=== PATIENT | female | born 1980 | race Caucasian/White ===

== ENCOUNTER 2021-03-19 02:59 | Emergency (ER) | payer SELFPAY ==
[2021-03-19 03:12] VITALS: BP 150/107
[2021-03-19] MEDS ORDERED: HYDROmorphone 0.5 MG/0.5 ML Syringe IVPUSH ONE ×2 (03:31→06:03)
[2021-03-19] MEDS ORDERED: Ondansetron 4 MG/2 ML SDV IVPUSH ONE (03:31)
[2021-03-19] MEDS ORDERED: Sodium Chloride 0.9% 10 ML Syringe FLUSH PRN (03:31)
[2021-03-19] MEDS ORDERED: Sodium Chloride 0.9% 1,000 ML IV SCH (03:45)
[2021-03-19] MEDS ORDERED: Ketorolac 30 MG/ML SDV IVPUSH SCH (03:45)
[2021-03-19 07:07] VITALS: PULSE 80
== END 2021-03-19 07:05 | disposition home or self-care (01) ==
LOC: JD.ED 02:59
DX: K85.90 Acute pancreatitis without necrosis or infection, unspecified (principal); Z79.899 Other long term (current) drug therapy; Z72.0 Tobacco use
CPT/HCPCS: 36415; 74177; 80053; 83690; 85025; 86140; 96374; 96375; 96376; 99284; J1170; J1885; J2405; J7030

== ENCOUNTER → 2021-04-01 | Day surgery (SDC) | payer SELFPAY ==
[~2021-04-01] MED LIST: Bupivacaine 0.5% 30 ML SDV ONE; HYDROmorphone 0.5 MG/0.5 ML Syringe IVPUSH PRN; HYDROmorphone 0.5 MG/0.5 ML Syringe ONE; Ketorolac 30 MG/ML SDV ONE; Lactated Ringers 1,000 ML IV SCH; Lactated Ringers 1,000 ML ONE; Lidocaine 1% 4 ML ONE; Lidocaine 1%/Sod Bicarbonate in NS 8.4% 1 ML Syringe IDERM PRN; Midazolam 1 MG/ML 2 ML SDV ONE; Ondansetron 4 MG/2 ML SDV IVPUSH PRN; Ondansetron 4 MG/2 ML SDV ONE; Propofol 200 MG/20 ML SDV ONE; Rocuronium 50 MG/5 ML Vial ONE; Sodium Chloride 0.9% 10 ML Syringe FLUSH PRN; Sodium Chloride 0.9% 10 ML Syringe FLUSH SCH; ceFAZolin 1 GM Vial ONE; diphenhydrAMINE 50 MG/ML SDV IVPUSH PRN; fentaNYL 100 MCG/2 ML SDV IVPUSH PRN; fentaNYL 100 MCG/2 ML SDV ONE; fentaNYL 250 MCG/5 ML SDV ONE; oxyCODONE 5 MG Tab PO ONE
[2021-04-01 12:04] VITALS: BP 114/69; PULSE 70
== END | disposition home or self-care (01) ==
LOC: JD.SDS 07:30
PROVIDERS: ATTEND Surgery
DX: K81.1 Chronic cholecystitis (principal); F17.210 Nicotine dependence, cigarettes, uncomplicated; F41.9 Anxiety disorder, unspecified; F32.A Depression, unspecified; K21.9 Gastro-esophageal reflux disease without esophagitis; Z79.899 Other long term (current) drug therapy
CPT/HCPCS: 47562; A9270; J0690; J1170; J1885; J2250; J2405; J2704; J2710; J3010; J3490; J7120; 00790

== ENCOUNTER 2022-08-18 04:23 | Inpatient (IN) | payer MEDICAID ==
[2022-08-18] MEDS ORDERED: diphenhydrAMINE 50 MG/ML SDV IVPUSH ONE (05:40)
[2022-08-18] MEDS ORDERED: Metoclopramide 10 MG/2 ML SDV IVPUSH ONE (05:40)
[2022-08-18] MEDS ORDERED: HYDROmorphone 1 MG/ML Syringe IVPUSH ONE (05:40)
[2022-08-18] MEDS ORDERED: Dextrose 5%-0.9% NaCl 1,000 ML IV SCH (05:45)
[2022-08-18 06:18] LABS: BASOPHILS ABSOLUTE AUTO 0.04 K/mm3 (0.01-0.08); BASOPHILS PERCENT AUTO 0.3 % (0.1-1.2); EOSINOPHILS ABSOLUTE AUTO 0.11 K/mm3 (0.04-0.36); EOSINOPHILS PERCENT AUTO 0.8 (0.7-5.8); IMMATURE GRAN ABSOLUTE AUTO 0.05 K/mm3 (0.00-0.10); IMMATURE GRAN PERCENT AUTO 0.4 % (<=1.0); LYMPHOCYTES ABSOLUTE AUTO 0.87 K/mm3 (1.18-3.74); LYMPHOCYTES PERCENT AUTO 6.7 % (19.3-51.7); MEAN CORPUSCULAR VOLUME 100.6 fl (79.4-94.8); MEAN PLATELET VOLUME 10.3 fl (9.4-12.3); MONOCYTES ABSOLUTE AUTO 1.41 K/mm3 (0.24-0.36); MONOCYTES PERCENT AUTO 10.9 % (4.7-12.5); NEUTROPHILS ABSOLUTE AUTO 10.48 K/mm3 (1.56-6.13); NEUTROPHILS PERCENT AUTO 80.9 % (34.0-71.1); PLATELET COUNT,PLT 221 K/mm3 (182-369); WHITE BLOOD CELL COUNT,WBC 12.96 K/mm3 (3.98-10.04)
[2022-08-18 06:30] LABS: CHLORIDE,CL 93 mEq/L (98-107); EST CRCL DRUG DOSING (CG) 82.14 mL/min; ESTIMATED GFR 82 mL/min (>60); SODIUM,NA 129 mEq/L (136-145)
[2022-08-18 06:43] LABS: MEAN CORPUSCULAR HEMOGLOBIN 38.8 pg (25.6-32.2); MEAN CORPUSCULAR HGB CONC 37.1 g/dl (32.2-35.5); RED BLOOD CELL COUNT 3.35 M/mm3 (3.98-5.22)
[2022-08-18 06:55] LABS: A/G RATIO 0.8 (1-2); ANION GAP 24.3 (5-15); BLOOD UREA NITROGEN,BUN 9 mg/dL (7-18); CARBON DIOXIDE,CO2 15 mEq/L (21-32)
[2022-08-18 07:10] LABS: POTASSIUM,K 3.3 mEq/L (3.5-5.1)
[2022-08-18 07:12] LABS: GLUCOSE RANDOM 216 mg/dL (70-99)
[2022-08-18 07:13] LABS: MAGNESIUM 1.9 mg/dL (1.8-2.4)
[2022-08-18 07:43] LABS: SLIDE REVIEW ABNORMAL SMEAR
[2022-08-18 07:43] LABS: APPEARANCE,URINE CLOUDY (Clear); BILIRUBIN,URINE NEGATIVE (Negative); COLOR,URINE AMBER (Yellow); GLUCOSE,URINE NEGATIVE (Negative); KETONES,URINE NEGATIVE (Negative); LEUKOCYTE ESTERASE,URINE 1+ (Negative); NITRITE,URINE NEGATIVE (Negative); OCCULT BLOOD,URINE 3+ (Negative); PROTEIN,URINE 2+ (Negative); UROBILINOGEN,URINE 0.2 (0.2-1.0)
[2022-08-18 07:57] LABS: LIPASE 8100 U/L (73-393)
[2022-08-18 07:57] LABS: BACTERIA,URINE MANY /hpf (FEW); MUCUS,URINE FEW /hpf (FEW); RBC,URINE 30-40 /hpf (0-5); SQUAMOUS EPITHELIAL CELLS,UR 0-5 /hpf (0-5); WBC CLUMPS,URINE FEW /hpf (NOT SEEN); WBC,URINE 75-100 /hpf (0-5)
[2022-08-18] MEDS ORDERED: cefTRIAXone 2 GM in Sodium Chloride 0.9% 100 ML IV ONE (08:52)
[2022-08-18] MEDS ORDERED: Morphine 4 MG/ML Syringe IVPUSH ONE ×2 (08:52→10:57)
[2022-08-18] MEDS ORDERED: Iopamidol 612 MG/ML 100 ML Bottle IVPUSH ONE (10:00)
[2022-08-18] MEDS ORDERED: Temazepam 7.5 MG Cap PO PRN (13:34)
[2022-08-18] MEDS ORDERED: Ondansetron 4 MG/2 ML SDV IV PRN (13:34)
[2022-08-18] MEDS ORDERED: Morphine 4 MG/ML Syringe IVPUSH PRN (13:34)
[2022-08-18] MEDS ORDERED: Albuterol/Ipratropium 3.0-0.5 MG/3 ML Neb Soln NEB PRN (13:34)
[2022-08-18] MEDS ORDERED: Naloxone 0.4 MG/ML SDV IVPUSH PRN (13:39)
[2022-08-18 15:13] LABS: CHOLESTEROL HDL 42 mg/dL (40-59); CHOLESTEROL LDL DIRECT 116 mg/dL (<100)
[2022-08-18 15:14] LABS: CHOLESTEROL TOTAL 472 mg/dL (<200); PHOSPHORUS 2.8 mg/dL (2.6-4.7)
[2022-08-18 15:15] LABS: MAGNESIUM 1.7 mg/dL (1.8-2.4)
[2022-08-18] MEDS: Enoxaparin 40 MG/0.4 ML Syringe SUBCUT SCH (15:28)
[2022-08-18] MEDS: Lactated Ringers 1,000 ML IV SCH ×2 (15:28→21:56)
[2022-08-18] MEDS: HYDROmorphone 1 MG/ML Syringe IVPUSH PRN ×2 (15:35→23:53)
[2022-08-18 15:44] LABS: TRIGLYCERIDES 4094 mg/dL (<150)
[2022-08-18] MEDS: Ketorolac 30 MG/ML SDV IVPUSH PRN (18:05)
[2022-08-18] MEDS ORDERED: Magnesium Sulfate/Water 2 GM in Premix Bag 1 BAG IV ONE (18:09)
[2022-08-18] MEDS ORDERED: Potassium Chloride 10 MEQ in Premix Bag 1 BAG IV ONE (18:10)
[2022-08-18 18:26] LABS: ANION GAP 23.2 (5-15); BUN/CREATININE RATIO 8.8 (14-18); CARBON DIOXIDE,CO2 14 mEq/L (21-32); CHLORIDE,CL 92 mEq/L (98-107); EST CRCL DRUG DOSING (CG) 92.41 mL/min; ESTIMATED GFR 94 mL/min (>60); SODIUM,NA 126 mEq/L (136-145)
[2022-08-18 18:33] LABS: GLUCOSE RANDOM 199 mg/dL (70-99); POTASSIUM,K 3.2 mEq/L (3.5-5.1)
[2022-08-18] MEDS: Fenofibrate Nanocrystallized 145 MG Tab PO SCH (19:45)
[2022-08-19] MEDS: Lactated Ringers 1,000 ML IV SCH ×3 (04:16→20:40)
[2022-08-19] MEDS: Ketorolac 30 MG/ML SDV IVPUSH PRN ×3 (04:17→16:47)
[2022-08-19 06:29] LABS: BASOPHILS ABSOLUTE AUTO 0.02 K/mm3 (0.01-0.08); BASOPHILS PERCENT AUTO 0.2 % (0.1-1.2); EOSINOPHILS ABSOLUTE AUTO 0.04 K/mm3 (0.04-0.36); EOSINOPHILS PERCENT AUTO 0.4 (0.7-5.8); HEMATOCRIT 33.8 % (34.1-44.9); HEMOGLOBIN 11.8 gm/dl (11.2-15.7); IMMATURE GRAN ABSOLUTE AUTO 0.02 K/mm3 (0.00-0.10); IMMATURE GRAN PERCENT AUTO 0.2 % (<=1.0); LYMPHOCYTES PERCENT AUTO 7.5 % (19.3-51.7); MEAN CORPUSCULAR HGB CONC 34.9 g/dl (32.2-35.5); MEAN CORPUSCULAR VOLUME 100.3 fl (79.4-94.8); MONOCYTES ABSOLUTE AUTO 0.34 K/mm3 (0.24-0.36); MONOCYTES PERCENT AUTO 3.7 % (4.7-12.5); NEUTROPHILS ABSOLUTE AUTO 8.19 K/mm3 (1.56-6.13); PLATELET COUNT,PLT 199 K/mm3 (182-369); RED BLOOD CELL COUNT 3.37 M/mm3 (3.98-5.22); WHITE BLOOD CELL COUNT,WBC 9.31 K/mm3 (3.98-10.04)
[2022-08-19] MEDS: cefTRIAXone 1 GM in Sodium Chloride 0.9% 100 ML IV SCH (06:41)
[2022-08-19 07:16] LABS: A/G RATIO 0.7 (1-2); ALBUMIN 2.6 g/dl (3.4-5.0); ALKALINE PHOSPHATASE 64 U/L (46-116); BILIRUBIN TOTAL 0.8 mg/dL (0.2-1.0); BLOOD UREA NITROGEN,BUN 9 mg/dL (7-18); BUN/CREATININE RATIO 8.2 (14-18); CALCIUM 6.6 mg/dL (8.5-10.1); CARBON DIOXIDE,CO2 24 mEq/L (21-32); CHLORIDE,CL 97 mEq/L (98-107); CREATININE 1.1 mg/dL (0.55-1.02); EST CRCL DRUG DOSING (CG) 67.21 mL/min; ESTIMATED GFR 64 mL/min (>60); GLUCOSE RANDOM 143 mg/dL (70-99); MAGNESIUM 2.9 mg/dL (1.8-2.4); PROTEIN TOTAL,TP 6.6 g/dl (6.4-8.2); SODIUM,NA 133 mEq/L (136-145)
[2022-08-19] MEDS: HYDROmorphone 1 MG/ML Syringe IVPUSH PRN ×3 (07:42→20:39)
[2022-08-19] MEDS: Fenofibrate Nanocrystallized 145 MG Tab PO SCH (07:52)
[2022-08-19] MEDS: Enoxaparin 40 MG/0.4 ML Syringe SUBCUT SCH (07:52)
[2022-08-19 08:02] LABS: C-REACTIVE PROTEIN 24.1 mg/dL (<1.0)
[2022-08-19] MEDS ORDERED: Potassium Chloride 10 MEQ in Premix Bag 1 BAG IV ONE (12:04)
[2022-08-19] MEDS ORDERED: Potassium Chloride 20 MEQ Tab.ER PO ONE (12:05)
[2022-08-19] MEDS ORDERED: Bumetanide 1 MG/4 ML MDV IVPUSH ONE (14:23)
[2022-08-20] MEDS: Ketorolac 30 MG/ML SDV IVPUSH PRN (04:11)
[2022-08-20 06:19] LABS: BASOPHILS ABSOLUTE AUTO 0.01 K/mm3 (0.01-0.08); BASOPHILS PERCENT AUTO 0.1 % (0.1-1.2); EOSINOPHILS ABSOLUTE AUTO 0.09 K/mm3 (0.04-0.36); IMMATURE GRAN ABSOLUTE AUTO 0.02 K/mm3 (0.00-0.10); IMMATURE GRAN PERCENT AUTO 0.2 % (<=1.0); LYMPHOCYTES ABSOLUTE AUTO 0.81 K/mm3 (1.18-3.74); LYMPHOCYTES PERCENT AUTO 8.7 % (19.3-51.7); MEAN CORPUSCULAR HEMOGLOBIN 34.1 pg (25.6-32.2); MEAN CORPUSCULAR HGB CONC 33.7 g/dl (32.2-35.5); MEAN CORPUSCULAR VOLUME 101.4 fl (79.4-94.8); MEAN PLATELET VOLUME 10.6 fl (9.4-12.3); MONOCYTES ABSOLUTE AUTO 0.21 K/mm3 (0.24-0.36); MONOCYTES PERCENT AUTO 2.3 % (4.7-12.5); NEUTROPHILS ABSOLUTE AUTO 8.17 K/mm3 (1.56-6.13); NEUTROPHILS PERCENT AUTO 87.7 % (34.0-71.1); PLATELET COUNT,PLT 178 K/mm3 (182-369); RED BLOOD CELL COUNT 2.96 M/mm3 (3.98-5.22); WHITE BLOOD CELL COUNT,WBC 9.31 K/mm3 (3.98-10.04)
[2022-08-20 06:24] LABS: HEMOGLOBIN 10.1 gm/dl (11.2-15.7)
[2022-08-20 06:38] LABS: ALKALINE PHOSPHATASE 81 U/L (46-116); BILIRUBIN TOTAL 0.6 mg/dL (0.2-1.0); BLOOD UREA NITROGEN,BUN 10 mg/dL (7-18); PROTEIN TOTAL,TP 6.5 g/dl (6.4-8.2); SODIUM,NA 136 mEq/L (136-145)
[2022-08-20] MEDS: cefTRIAXone 1 GM in Sodium Chloride 0.9% 100 ML IV SCH (06:44)
[2022-08-20] MEDS: HYDROmorphone 1 MG/ML Syringe IVPUSH PRN (07:02)
[2022-08-20 07:05] LABS: A/G RATIO 0.6 (1-2); ALBUMIN 2.4 g/dl (3.4-5.0); ANION GAP 15.1 (5-15); BUN/CREATININE RATIO 9.1 (14-18); CALCIUM 6.8 mg/dL (8.5-10.1); CARBON DIOXIDE,CO2 24 mEq/L (21-32); CHLORIDE,CL 100 mEq/L (98-107); CREATININE 1.1 mg/dL (0.55-1.02); EST CRCL DRUG DOSING (CG) 67.21 mL/min; ESTIMATED GFR 64 mL/min (>60)
[2022-08-20 07:13] LABS: GLUCOSE RANDOM 133 mg/dL (70-99)
[2022-08-20 07:14] LABS: POTASSIUM,K 3.1 mEq/L (3.5-5.1)
[2022-08-20] MEDS: Fenofibrate Nanocrystallized 145 MG Tab PO SCH (08:26)
[2022-08-20] MEDS: Enoxaparin 40 MG/0.4 ML Syringe SUBCUT SCH (08:26)
[2022-08-20] MEDS ORDERED: Potassium Bicarbonate/Cit Ac 20 MEQ Effervescent Tab PO ONE (09:00)
[2022-08-20] MEDS: Lactated Ringers 1,000 ML IV SCH ×2 (13:09→23:05)
[2022-08-20] MEDS: oxyCODONE 5 MG Tab PO PRN ×2 (15:08→21:04)
[2022-08-21] MEDS: oxyCODONE 5 MG Tab PO PRN ×4 (04:37→20:19)
[2022-08-21 06:12] LABS: BASOPHILS ABSOLUTE AUTO 0.02 K/mm3 (0.01-0.08); BASOPHILS PERCENT AUTO 0.2 % (0.1-1.2); EOSINOPHILS ABSOLUTE AUTO 0.07 K/mm3 (0.04-0.36); EOSINOPHILS PERCENT AUTO 0.7 (0.7-5.8); HEMATOCRIT 27.9 % (34.1-44.9); HEMOGLOBIN 8.9 gm/dl (11.2-15.7); IMMATURE GRAN ABSOLUTE AUTO 0.02 K/mm3 (0.00-0.10); IMMATURE GRAN PERCENT AUTO 0.2 % (<=1.0); LYMPHOCYTES ABSOLUTE AUTO 1.04 K/mm3 (1.18-3.74); LYMPHOCYTES PERCENT AUTO 10.9 % (19.3-51.7); MEAN CORPUSCULAR HEMOGLOBIN 32.8 pg (25.6-32.2); MEAN CORPUSCULAR HGB CONC 31.9 g/dl (32.2-35.5); MEAN PLATELET VOLUME 10.7 fl (9.4-12.3); MONOCYTES ABSOLUTE AUTO 0.35 K/mm3 (0.24-0.36); MONOCYTES PERCENT AUTO 3.7 % (4.7-12.5); NEUTROPHILS ABSOLUTE AUTO 8.06 K/mm3 (1.56-6.13); NEUTROPHILS PERCENT AUTO 84.3 % (34.0-71.1); PLATELET COUNT,PLT 208 K/mm3 (182-369); RED BLOOD CELL COUNT 2.71 M/mm3 (3.98-5.22); WHITE BLOOD CELL COUNT,WBC 9.56 K/mm3 (3.98-10.04)
[2022-08-21 06:33] LABS: A/G RATIO 0.6 (1-2); ALBUMIN 2.4 g/dl (3.4-5.0); ANION GAP 10.3 (5-15); BILIRUBIN TOTAL 0.6 mg/dL (0.2-1.0); CALCIUM 7.9 mg/dL (8.5-10.1); EST CRCL DRUG DOSING (CG) 73.93 mL/min; MAGNESIUM 2.4 mg/dL (1.8-2.4); PROTEIN TOTAL,TP 6.6 g/dl (6.4-8.2)
[2022-08-21 06:36] LABS: POTASSIUM,K 3.3 mEq/L (3.5-5.1)
[2022-08-21] MEDS: Levothyroxine 112 MCG Tab PO SCH (06:47)
[2022-08-21] MEDS: cefTRIAXone 1 GM in Sodium Chloride 0.9% 100 ML IV SCH (06:47)
[2022-08-21] MEDS: Lactated Ringers 1,000 ML IV SCH (07:20)
[2022-08-21] MEDS: Sertraline 50 MG Tab PO SCH (09:07)
[2022-08-21] MEDS: Pantoprazole 40 MG Tab.CR PO SCH (09:07)
[2022-08-21] MEDS: Fenofibrate Nanocrystallized 145 MG Tab PO SCH (09:07)
[2022-08-21] MEDS: Enoxaparin 40 MG/0.4 ML Syringe SUBCUT SCH (09:08)
[2022-08-22 06:03] LABS: BASOPHILS ABSOLUTE AUTO 0.04 K/mm3 (0.01-0.08); BASOPHILS PERCENT AUTO 0.4 % (0.1-1.2); EOSINOPHILS ABSOLUTE AUTO 0.08 K/mm3 (0.04-0.36); EOSINOPHILS PERCENT AUTO 0.7 (0.7-5.8); HEMATOCRIT 28.1 % (34.1-44.9); IMMATURE GRAN ABSOLUTE AUTO 0.09 K/mm3 (0.00-0.10); IMMATURE GRAN PERCENT AUTO 0.8 % (<=1.0); LYMPHOCYTES ABSOLUTE AUTO 1.21 K/mm3 (1.18-3.74); MEAN CORPUSCULAR HEMOGLOBIN 33.5 pg (25.6-32.2); MEAN CORPUSCULAR VOLUME 104.5 fl (79.4-94.8); MEAN PLATELET VOLUME 10.3 fl (9.4-12.3); MONOCYTES PERCENT AUTO 4.5 % (4.7-12.5); NEUTROPHILS PERCENT AUTO 82.6 % (34.0-71.1); PLATELET COUNT,PLT 259 K/mm3 (182-369); RED BLOOD CELL COUNT 2.69 M/mm3 (3.98-5.22); WHITE BLOOD CELL COUNT,WBC 11.02 K/mm3 (3.98-10.04)
[2022-08-22] MEDS: oxyCODONE 5 MG Tab PO PRN ×4 (06:05→20:56)
[2022-08-22] MEDS: Levothyroxine 112 MCG Tab PO SCH (06:05)
[2022-08-22] MEDS: cefTRIAXone 1 GM in Sodium Chloride 0.9% 100 ML IV SCH (06:05)
[2022-08-22 06:16] LABS: A/G RATIO 0.6 (1-2); ALBUMIN 2.4 g/dl (3.4-5.0); ANION GAP 9.5 (5-15); BILIRUBIN TOTAL 0.4 mg/dL (0.2-1.0); CALCIUM 8.6 mg/dL (8.5-10.1); EST CRCL DRUG DOSING (CG) 73.93 mL/min; POTASSIUM,K 3.5 mEq/L (3.5-5.1); PROTEIN TOTAL,TP 6.7 g/dl (6.4-8.2)
[2022-08-22] MEDS: Fenofibrate Nanocrystallized 145 MG Tab PO SCH (09:02)
[2022-08-22] MEDS: Pantoprazole 40 MG Tab.CR PO SCH (09:02)
[2022-08-22] MEDS: Sertraline 50 MG Tab PO SCH (09:03)
[2022-08-22] MEDS: Enoxaparin 40 MG/0.4 ML Syringe SUBCUT SCH (09:04)
[2022-08-22] MEDS: Docusate Sodium 100 MG Cap PO SCH ×2 (10:21→20:56)
[2022-08-23] MEDS: cefTRIAXone 1 GM in Sodium Chloride 0.9% 100 ML IV SCH (06:12)
[2022-08-23] MEDS: Levothyroxine 112 MCG Tab PO SCH (06:12)
[2022-08-23] MEDS ORDERED: Magnesium Citrate Solution 296 ML Bottle PO ONE (08:06)
[2022-08-23] MEDS: Docusate Sodium 100 MG Cap PO SCH (09:10)
[2022-08-23] MEDS: Fenofibrate Nanocrystallized 145 MG Tab PO SCH (09:10)
[2022-08-23] MEDS: Sertraline 50 MG Tab PO SCH (09:10)
[2022-08-23] MEDS: Enoxaparin 40 MG/0.4 ML Syringe SUBCUT SCH (09:10)
[2022-08-23] MEDS: Pantoprazole 40 MG Tab.CR PO SCH (09:10)
[2022-08-23] MEDS ORDERED: Polyethylene Glycol 3350 Powder 17 GM Packet PO ONE (09:15)
[2022-08-23 12:18] VITALS: BP 136/79; PULSE 93
== END 2022-08-23 15:28 | disposition home or self-care (01) | DRG 439 ==
LOC: JD.ED 04:23 → JD.MS 12:02
PROVIDERS: ADMIT Hospitalist; ATTEND Hospitalist
DX: K85.20 Alcohol induced acute pancreatitis without necrosis or infection (principal); E87.1 Hypo-osmolality and hyponatremia; N12 Tubulo-interstitial nephritis, not specified as acute or chronic; E87.20 Acidosis, unspecified; E03.9 Hypothyroidism, unspecified; E78.2 Mixed hyperlipidemia; K59.03 Drug induced constipation; T40.2X5A Adverse effect of other opioids, initial encounter; K21.9 Gastro-esophageal reflux disease without esophagitis; F41.9 Anxiety disorder, unspecified; H54.7 Unspecified visual loss; E87.6 Hypokalemia; R31.29 Other microscopic hematuria; F32.A Depression, unspecified; T83.32XA Displacement of intrauterine contraceptive device, initial encounter; F10.20 Alcohol dependence, uncomplicated; D64.9 Anemia, unspecified; Z79.890 Hormone replacement therapy; Z79.899 Other long term (current) drug therapy; Z90.49 Acquired absence of other specified parts of digestive tract
CPT/HCPCS: 36415; 74018; 74018-26; 74177; 74177-26; 80048; 80053; 80061; 81001; 82607; 82746; 83690; 83735; 84100; 84443; 85025; 85379; 85610; 86140; 94760; 94761; 96361; 96365; 96375; 96376; 99284; 99285-25; A9270-GY; J0696; J1170; J1200; J1650; J1885; J2270; J2765; J3475; J3480; J3490; J7042; J7120